=== PATIENT | female | born 1960 | race Caucasian/White ===

== ENCOUNTER 2021-02-05 19:10 | Emergency (ER) | payer MEDICAID ==
[~2021-02-05] VITALS: Ht 162.6 cm; Wt 77.2 kg
--- NOTE | 2021-02-05 19:15 | NUR ---
EX ASSISTANT/PROGRAM DIRECTOR: NO ANSWER X1 TO TRIAGE AT THIS TIME 1914
--- NOTE | 2021-02-05 19:26 | NUR ---
NOE RN: NO ANSWER X2 TO TRIAGE FROM LOBBY AT THIS TIME 1925
[2021-02-05 19:34] VITALS: BP 122/67
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
--- NOTE | 2021-02-05 20:23 | NUR ---
GUILLERMO Ardon saw pt. Pt discharged home.
== END 2021-02-05 20:24 | disposition left against medical advice (07) ==
LOC: ED 20:18
DX: F99 Mental disorder, not otherwise specified (principal); Z53.21 Procedure and treatment not carried out due to patient leaving prior to being seen by health care provider